=== PATIENT | female | born 1985 | race Caucasian/White ===

== ENCOUNTER 2023-09-02 12:50 | Outpatient (AMB) | payer OTHER, SELFPAY ==
[2023-09-02 12:59] VITALS: BP 136/90; PULSE 84; O2SAT 99; BMI 33.9
--- NOTE | 2023-09-02 12:59 | A.OFFPC_ITS ---
Vital Signs 09/02/23 12:59 Height 5 ft 6 in Weight 210 lb BMI 33.9 BP 136/90 H Blood Pressure Location Lt brachial Position Sitting Pulse 84 Pulse Source Pulse Oximeter Pulse Oximetry (%) 99 Oxygen Delivery Method Room Air Intake Visit Reasons: Annual PE Intake Note: Pt is here today for PE. Allergies No Known Allergies Allergy (Mild, Verified 09/02/23 13:00) NONE Medication List - Last Reconciled 09/02/23 by Patrick Zurita MD No Known Home Meds Tobacco use date assessed: 09/02/23 Dental Screening Dental Screen Date: 09/02/23 Did you have a dental visit in the last 12 months?: Yes Did you have a dental problem in the last 6 months where you did not have access to dental care?: No Was dental information given to patient?: Patient has dentist HPI Annual PE HPI Details Patient is a 38-year-old female came in today for physical exam Patient is in need of OBGYN appointment Migraine headaches: Patient has a from migraine headaches all the time, she has not taken any medications in the past Headache starts in the middle of the forehead and it is throbbing in nature. 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 Lab order placed to be done fasting We will book appointment in 3 weeks for follow-up [facility] Surgical History No pertinent past surgical history Family History Father Insulin dependent diabetes mellitus Mother Cervical cancer Brother No problems noted. Daughter No problems noted. Daughter No problems noted. Daughter No problems noted. Daughter No problems noted. Daughter No problems noted. Sister No problems noted. Sister No problems noted. Sister No problems noted. Sister No problems noted. Sister No problems noted. Sister No problems noted. Sister No problems noted. Sister No problems noted. Sister No problems noted. Social History Housing: House Alcohol intake: current Alcohol intake frequency: a few times a week Patient Tobacco Use Status: Current everyday Tobacco user Cigarettes Per Day: 6 e-Cigarette/Vaping Use: Never Used Current occupational status: employed Cognitive needs: No Hearing needs: No Vision needs: Yes Questionnaire PHQ-9 Over the last 2 weeks, how often have you been bothered by any of the following problems? [id number] - PHQ-9 Billing: Patient declined-do not bill Source: Developed by Drs. Devyn Dunaway, Judith Blank, Demetrius Marcial and colleagues, with an educational christian from [employer]. Thrive Questionnaire Date Thrive assessed: 09/02/23 I am a: Patient What is your living situation today?: I choose not to answer this question Within the past 12 months, did the food you bought not last and you didn't have the money to get more?: I choose not to answer this question Within the past 12 months, did you worry whether your food would run out before you got money to buy more?: I choose not to answer this question Do you have trouble paying for medicines?: I choose not to answer this question Do you have trouble getting transportation to medical appointments?: I choose not to answer this question Do you have trouble paying your heating and electricity bill?: I choose not to answer this question Do you have trouble taking care of your child, family member or friend?: I choose not to answer this question Do you have trouble with day-to-day activities such as bathing, preparing meals, shopping, managing finances, etc.?: I choose not to answer this question Are you currently unemployed and looking for a job?: I choose not to answer this question Are you interested in more education?: I choose not to answer this question Currently or been in a relationship where the following occur: I choose not to answer this question AUDIT C Alcohol Use Questionnaire (AUDIT-C) 1. How often do you have a drink containing alcohol?: Never 3. How often do you have six or more drinks on one occasion?: Never Total Score: 0 LUIS-7 AMB Questionnaire LUIS-7 Date LUIS - 7 assessed: 09/02/23 Source: Developed by Mikie Gaet B.W. Abhay, Demetrius Marcial and colleagues, with an educational christian from [employer]. LUIS-7 Assessment Billing LUIS-7 Assessment Tool: pt declined-do not bill Review of Systems Const Denies chills, Denies fever(s) and Denies headache(s) Eyes Denies blurry vision ENT Denies headache(s), Denies nasal discharge, Denies nasal obstruction, Denies odynophagia and Denies sinus pain Card Denies chest pain at rest and Denies chest pain with activity Resp Denies cough and Denies hemoptysis GI Denies diarrhea, Denies odynophagia, Denies vomiting and Denies hematemesis Reports as per HPI Musc Denies abnormal gait Skin/Breast Reports as per HPI Neuro Denies Neuro-related abnormal movements, Denies Abnormal speech present, Denies abnormal gait, Denies headache(s) and Denies Sensory deficit (Neuro) Psych Denies mood swings and Denies paranoia Endo Reports as per HPI Jr/Lymph Reports as per HPI Aller/Immun Reports as per HPI Physical exam (Primary Care) Vital Signs: Last Vital Signs Pulse 84 09/02/23 12:59 BP 136/90 H 09/02/23 12:59 Pulse Ox 99 09/02/23 12:59 Oxygen Delivery Method Room Air 09/02/23 12:59 BMI result Body Mass Index 33.9 Tobacco/Smoking Status: Tobacco use Status Tobacco use date assessed 09/02/23 09/02/23 13:04 Patient Tobacco Use Status Current everyday Tobacco 09/02/23 13:04 e-Cigarette/Vaping Use Never Used 09/02/23 13:04 Thrive Assessment: Date of Thrive Assessment Date Thrive assessed 09/02/23 09/02/23 15:08 Currently or been in a relationship where the following occur: I choose not to answer this question Const General: cooperative, comfortable and no acute distress Orientation/consciousness: patient oriented x3 HENMT Head: Yes normocephalic and Yes atraumatic Eyes General: appearance normal, both eyes and all related structures Pupils: Equal, round and reactive pupils present EOM: EOMs intact bilaterally Neck Neck: Yes supple and No lymphadenopathy Thyroid: Thyroid normal Lymphatic: no lymphadenopathy noted Chest Breast/axilla palpation: normal palpation of the breasts Resp Effort & Inspection: normal respiratory effort and able to speak in complete sentences Auscultation: clear to auscultation bilaterally Cardio Heart sounds: S1 normal heart sound present and S2 normal heart sound present GI Palpation (GI): Soft to palpation and nontender Auscultation: normal bowel sounds General: Yes no CVA tenderness Back/Spine/Pelvis Back: no CVA tenderness Skin General skin exam: elasticity normal and turgor normal Neuro General: patient oriented x3 and gait normal Cranial nerves: Yes Equal, round and reactive pupils present Speech: No Abnormal speech present Sensory Exam: No Sensory deficit (Neuro) Coordination: tandem gait normal and Romberg test negative Extrem General: Yes normal exam except as noted and No edema Assessment and Plan Assessment & Plan (1) Encounter for general adult medical examination with abnormal findings: Code(s): Z00.01 - Encounter for general adult medical examination with abnormal findings (2) Migraine headache with aura: Code(s): G43.109 - Migraine with aura, not intractable, without status migrainosus Qualifiers: Intractability: intractable Status migrainosus presence: without status migrainosus Qualified Code(s): G43.119 - Migraine with aura, intractable, without status migrainosus (3) Obesity due to excess calories: Code(s): E66.09 - Other obesity due to excess calories Qualifiers: Body mass index: BMI 33.0-33.9 Obesity classification: adult class 1 (BMI 30 - 34.9) Serious obesity comorbidity presence: without serious comorbidity Qualified Code(s): E66.09 - Other obesity due to excess calories; Z68.33 - Body mass index [BMI] 33.0-33.9, adult Plan Patient is a 38-year-old female came in today for physical exam Patient is in need of OBGYN appointment Migraine headaches: Patient has a from migraine headaches all the time, she has not taken any medications in the past Headache starts in the middle of the forehead and it is throbbing in nature. 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 Lab order placed to be done fasting We will book appointment in 3 weeks for follow-up Orders: Orders TSH reflex Free T4 Today E66.09 - Other obesity due to excess calories, G43.109 - Migraine with aura, not intractable, without status migrainosus, Z00.01 - Encounter for general adult medical examination with abnormal findings Vitamin D 25-OH (D2 and D3) Today E66.09 - Other obesity due to excess calories, G43.109 - Migraine with aura, not intractable, without status migrainosus, Z00.01 - Encounter for general adult medical examination with abnormal findings Complete Blood Count Auto Diff Today E66.09 - Other obesity due to excess calories, G43.109 - Migraine with aura, not intractable, without status migrainosus, Z00.01 - Encounter for general adult medical examination with abnormal findings Comprehensive [place]. Panel Fast Today E66.09 - Other obesity due to excess calories, G43.109 - Migraine with aura, not intractable, without status migrainosus, Z00.01 - Encounter for general adult medical examination with abnormal findings Lipid Panel Today E66.09 - Other obesity due to excess calories, G43.109 - Migraine with aura, not intractable, without status migrainosus, Z00.01 - Encounter for general adult medical examination with abnormal findings Referrals ENGINEERING TECHNOLOGY INSTRUCTOR Referral Z01.419 - Encounter for gynecological examination (general) (routine) without abnormal findings Medications: New amitriptyline 10 mg PO BEDTIME 30 tabs 0RF amitriptyline 10 mg PO BEDTIME 30 tabs 0RF sumatriptan succinate 50 mg PO ONCE 30 days PRN 10 tabs 0RF At the onset of migraine headache sumatriptan succinate 50 mg PO ONCE PRN 10 tabs 0RF At the onset of migraine headache 30 days Coding Level of Care Code Est Pt Prev Care 18-39y(87927) Diagnoses Encounter for general adult medical examination with abnormal findings Z00.01 Intractable migraine with aura without status migrainosus G43.119 Intractability: intractable Status migrainosus presence: without status migrainosus Class 1 obesity due to excess calories without serious comorbidity with body mas s index (BMI) of 33.0 to 33.9 in adult E66.09; Z68.33 Body mass index: BMI 33.0-33.9 Obesity classification: adult class 1 (BMI 30 - 34.9) Serious obesity comorbidity presence: without serious comorbidity
== END 2023-09-02 15:36 | disposition home or self-care (01) ==
PROVIDERS: Visit Provider Internal Medicine
DX: Z00.01 Encounter for general adult medical examination with abnormal findings (principal); G43.119 Migraine with aura, intractable, without status migrainosus; E66.09 Other obesity due to excess calories; Z68.33 Body mass index [BMI] 33.0-33.9, adult
CPT/HCPCS: 99213; 99395

== ENCOUNTER 2023-09-25 08:49 | Outpatient (AMB) | payer OTHER, SELFPAY ==
--- NOTE | 2023-09-25 09:07 | MHC.PC.OV ---
Intake Visit Reasons: 3 week follow up Allergies No Known Allergies Allergy (Mild, Verified 09/25/23 09:07) NONE Medication List - Last Reconciled 09/25/23 by Patrick Zurita MD amitriptyline 10 mg PO BEDTIME sumatriptan succinate 50 mg PO ONCE PRN 30 days Tobacco use date assessed: 09/25/23 Dental Screening Dental Screen Date: 09/25/23 Did you have a dental visit in the last 12 months?: Yes Did you have a dental problem in the last 6 months where you did not have access to dental care?: No Was dental information given to patient?: Patient has dentist HPI 3 week follow up HPI Details Patient is 38 year old female this is a telemedicine video conference to follow-up on her migraine headaches I started her on amitriptyline 25 mg at night patient says that she is feeling much better she is not getting headaches as much Sumatriptan has also helped her for acute headaches. Patient is tolerating medications I have sent refill for her Currently patient is suffering from chest cold, she says that her son had RSV 1 week ago Patient is coughing up thang phlegm and is feeling tight in her chest for the past 3 days. I have sent azithromycin with prednisone 20 mg once a day for 5 days, patient was instructed to rest and hydrate well. She may take [id number] cough medicine. [facility] Surgical History No pertinent past surgical history Family History Father Insulin dependent diabetes mellitus Mother Cervical cancer Brother No problems noted. Daughter No problems noted. Daughter No problems noted. Daughter No problems noted. Daughter No problems noted. Daughter No problems noted. Sister No problems noted. Sister No problems noted. Sister No problems noted. Sister No problems noted. Sister No problems noted. Sister No problems noted. Sister No problems noted. Sister No problems noted. Sister No problems noted. Social History Housing: House Alcohol intake: current Alcohol intake frequency: a few times a week Patient Tobacco Use Status: Current everyday Tobacco user Cigarettes Per Day: 6 e-Cigarette/Vaping Use: Never Used Current occupational status: employed Cognitive needs: No Hearing needs: No Vision needs: Yes Questionnaire Thrive Questionnaire Date Thrive assessed: 09/02/23 AUDIT C Alcohol Use Questionnaire (AUDIT-C) 1. How often do you have a drink containing alcohol?: Never 3. How often do you have six or more drinks on one occasion?: Never Total Score: 0 Score Reviewed/Action Taken: Yes LUIS-7 AMB Questionnaire LUIS-7 Date LUIS - 7 assessed: 09/02/23 Source: Developed by Drs. Devyn Dunaway, Judith Blank, Demetrius Marcial and colleagues, with an educational christian from [employer]. Review of Systems Const Reports body aches, Denies chills and Denies fever(s) ENT Denies epistaxis, Reports nasal congestion and Reports nasal discharge Card Denies chest pain Resp Reports chest congestion, Reports cough and Denies hemoptysis GI Denies diarrhea and Denies nausea Skin/Breast Denies rash Neuro Reports no additional complaints Psych Reports no additional complaints Endo Reports no additional complaints Physical exam (Primary Care) Tobacco/Smoking Status: Tobacco use Status Tobacco use date assessed 09/25/23 09/25/23 09:07 Patient Tobacco Use Status Current everyday Tobacco 09/25/23 09:07 e-Cigarette/Vaping Use Never Used 09/25/23 09:07 Thrive Assessment: Date of Thrive Assessment Date Thrive assessed 09/02/23 09/25/23 09:07 Telehealth Telehealth Location of provider rendering services: practice address Location of patient: address on file Patient Identification confirmed using: Name, : Yes Telehealth method: video Patient verbally consented to treatment: Yes Patient verbally consented to billing insurance company: Yes Patient informed of any privacy concerns related to visit: Yes Minutes spent on Phone/Video with Pt.: 13 Assessment and Plan Assessment & Plan (1) Migraine headache with aura: Code(s): G43.109 - Migraine with aura, not intractable, without status migrainosus Qualifiers: Status migrainosus presence: without status migrainosus Intractability: intractable Qualified Code(s): G43.119 - Migraine with aura, intractable, without status migrainosus (2) Cough productive of yellow sputum: Code(s): R05.8 - Other specified cough (3) Chest congestion: Code(s): R09.89 - Other specified symptoms and signs involving the circulatory and respiratory systems (4) Malaise and fatigue: Code(s): R53.81 - Other malaise; R53.83 - Other fatigue (5) Feeling sick: Code(s): R68.89 - Other general symptoms and signs (6) RSV exposure: Code(s): Z20.828 - Contact with and (suspected) exposure to other viral communicable diseases Plan Patient is 38 year old female this is a telemedicine video conference to follow-up on her migraine headaches I started her on amitriptyline 25 mg at night patient says that she is feeling much better she is not getting headaches as much Sumatriptan has also helped her for acute headaches. Patient is tolerating medications I have sent refill for her Currently patient is suffering from chest cold, she says that her son had RSV 1 week ago Patient is coughing up thang phlegm and is feeling tight in her chest for the past 3 days. I have sent azithromycin with prednisone 20 mg once a day for 5 days, patient was instructed to rest and hydrate well. She may take [id number] cough medicine. She has not done labs yet reminded patient to do them as soon as she started feeling better Medications: New prednisone 20 mg PO DAILY 5 days 5 tabs 0RF azithromycin Take 2 tablets today then 1 daily 250 mg PO ONCE 5 days 6 tabs 0RF J06.9 - Acute upper respiratory infection, unspecified Refilled amitriptyline 10 mg PO BEDTIME 90 tabs 0RF sumatriptan succinate 50 mg PO ONCE 30 days PRN 10 tabs 2RF At the onset of migraine headache Coding Level of Care Code Tele Est Pt Level 3 (11901) Diagnoses Intractable migraine with aura without status migrainosus G43.119 Status migrainosus presence: without status migrainosus Intractability: intractable Cough productive of yellow sputum R05.8 Chest congestion R09.89 Malaise and fatigue R53.81; R53.83 Feeling sick R68.89 RSV exposure Z20.828
== END 2023-09-25 11:20 | disposition home or self-care (01) ==
LOC: HO.HMGC 08:49
PROVIDERS: Visit Provider Internal Medicine
DX: G43.119 Migraine with aura, intractable, without status migrainosus (principal); R05.8 Other specified cough; R09.89 Other specified symptoms and signs involving the circulatory and respiratory systems; R53.81 Other malaise; R53.83 Other fatigue; R68.89 Other general symptoms and signs; Z20.828 Contact with and (suspected) exposure to other viral communicable diseases
CPT/HCPCS: 99213

== ENCOUNTER 2024-09-21 15:32 | Outpatient (AMB) | payer OTHER, SELFPAY ==
[2024-09-21 15:33] VITALS: BP 126/74; PULSE 96; O2SAT 98; BMI 38.5
--- NOTE | 2024-09-21 15:33 | A.OFFPC_ITS ---
Vital Signs 09/21/24 15:33 Height 5 ft 6 in Weight 238 lb 6 oz BMI 38.5 BP 126/74 Blood Pressure Location Rt brachial Position Sitting Pulse 96 Pulse Source Pulse Oximeter Pulse Oximetry (%) 98 Oxygen Delivery Method Room Air Intake Visit Reasons: Annual PE Allergies No Known Allergies Allergy (Mild, Verified 09/21/24 15:34) NONE Medication List - Last Reconciled 09/21/24 by Patrick Zurita MD No Known Home Meds Tobacco use date assessed: 09/21/24 Dental Screening Dental Screen Date: 09/21/24 Did you have a dental visit in the last 12 months?: Yes Did you have a dental problem in the last 6 months where you did not have access to dental care?: No Was dental information given to patient?: Patient has dentist HPI Annual PE HPI Details Patient is 39-year-old female came in today for physical exam She needs a T spot test for work Patient had a baby 6 months ago, OBGYN visit was at that time She has developed a skin tag right upper eyelid which is getting bigger She would like to see a support services specialist for that BMI is elevated patient is trying to lose weight She offer no other complaints today [facility] Surgical History No pertinent past surgical history Family History Father Insulin dependent diabetes mellitus Mother Cervical cancer Brother No problems noted. Daughter No problems noted. Daughter No problems noted. Daughter No problems noted. Daughter No problems noted. Daughter No problems noted. Sister No problems noted. Sister No problems noted. Sister No problems noted. Sister No problems noted. Sister No problems noted. Sister No problems noted. Sister No problems noted. Sister No problems noted. Sister No problems noted. Social History Housing: House Alcohol intake: current Alcohol intake frequency: a few times a week Patient Tobacco Use Status: Current everyday Tobacco user Cigarettes Per Day: 6 e-Cigarette/Vaping Use: Never Used Current occupational status: employed Cognitive needs: No Hearing needs: No Vision needs: Yes Questionnaire PHQ-9 Over the last 2 weeks, how often have you been bothered by any of the following problems? 1. Little interest or pleasure in doing things: not at all 2. Feeling down, depressed, or hopeless: not at all 3. Trouble falling or staying asleep, or sleeping too much: not at all 4. Feeling tired or having little energy: not at all 5. Poor appetite or overeating: not at all 6. Feeling bad about yourself - or that you are a failure or have let yourself or your family down: not at all 7. Trouble concentrating on things, such as reading the newspaper or watching television: not at all 8. Moving or speaking so slowly that other people could have noticed. Or the opposite - being so fidgety or restless that you have been moving around a lot more than usual: not at all 9. Thoughts that you would be better off or of hurting yourself in some way: not at all Total score: 0 Depression Screening Interpretation: Negative Depression Screening Done: Yes 21892 - PHQ-9 Billing: Yes Source: Developed by Drs. Devyn Dunaway, Judith Blank, Demetrius Marcial and colleagues, with an educational christian from [employer]. Thrive Questionnaire Date Thrive assessed: 09/21/24 I am a: Patient What is your living situation today?: I have a steady place to live Within the past 12 months, did the food you bought not last and you didn't have the money to get more?: Never true Within the past 12 months, did you worry whether your food would run out before you got money to buy more?: Never true Do you have trouble paying for medicines?: No Do you have trouble getting transportation to medical appointments?: No Do you have trouble paying your heating and electricity bill?: No Do you have trouble taking care of your child, family member or friend?: No Do you have trouble with day-to-day activities such as bathing, preparing meals, shopping, managing finances, etc.?: No Are you currently unemployed and looking for a job?: No Are you interested in more education?: No Please select the resources that you would like help with: None Currently or been in a relationship where the following occur: No concerns reported THRIVE Score: 0 AUDIT C Alcohol Use Questionnaire (AUDIT-C) 1. How often do you have a drink containing alcohol?: Never 3. How often do you have six or more drinks on one occasion?: Never Total Score: 0 Score Reviewed/Action Taken: Yes LUIS-7 AMB Questionnaire LUIS-7 Date LUIS - 7 assessed: 09/21/24 Feeling nervous, anxious, or on edge: 0 = Not at all Not being able to stop or control worryin = Not at all Worrying too much about different things: 0 = Not at all Trouble relaxin = Not at all Being so restless that it is hard to sit still: 0 = Not at all Becoming easily annoyed or irritable: 0 = Not at all Feeling afraid as if something awful might happen: 0 = Not at all Total LUIS-7 score (0-4 normal; 5-9 mild; 10-14 moderate; 15-21 severe): 0 Source: Developed by Drs. Devyn Dunaway, Judith Blank, Demetrius Marcial and colleagues, with an educational christian from [employer]. LUIS-7 Assessment Billing LUIS-7 Assessment Tool: LUIS-7 Assessment 78766 Review of Systems Const Denies chills, Denies fever(s) and Denies headache(s) Eyes Denies blurry vision ENT Denies headache(s), Denies nasal discharge, Denies nasal obstruction, Denies odynophagia and Denies sinus pain Card Denies chest pain at rest and Denies chest pain with activity Resp Denies cough and Denies hemoptysis GI Denies diarrhea, Denies odynophagia, Denies vomiting and Denies hematemesis Reports as per HPI Musc Denies abnormal gait Skin/Breast Reports as per HPI Neuro Denies Neuro-related abnormal movements, Denies Abnormal speech present, Denies abnormal gait, Denies headache(s) and Denies Sensory deficit (Neuro) Psych Denies mood swings and Denies paranoia Endo Reports as per HPI Jr/Lymph Reports as per HPI Aller/Immun Reports as per HPI Physical exam (Primary Care) Vital Signs: Last Vital Signs Pulse 96 09/21/24 15:33 BP 126/74 09/21/24 15:33 Pulse Ox 98 09/21/24 15:33 Oxygen Delivery Method Room Air 09/21/24 15:33 BMI result Body Mass Index 38.5 Tobacco/Smoking Status: Tobacco use Status Tobacco use date assessed 09/21/24 09/21/24 15:36 Patient Tobacco Use Status Current everyday Tobacco 11/12/24 15:36 e-Cigarette/Vaping Use Never Used 09/21/24 15:36 PHQ-9: PHQ-9 Score PHQ-9: Total score 0 09/21/24 15:59 Depression Screening Interpretation: Negative Thrive Assessment: Date of Thrive Assessment Date Thrive assessed 09/21/24 09/21/24 15:36 Currently or been in a relationship where the following occur: No concerns reported Const General: cooperative, comfortable and no acute distress Orientation/consciousness: patient oriented x3 HENMT Head: Yes normocephalic and Yes atraumatic Eyes General: appearance normal, both eyes and all related structures Pupils: Equal, round and reactive pupils present EOM: EOMs intact bilaterally Neck Neck: Yes supple and No lymphadenopathy Thyroid: Thyroid normal Lymphatic: no lymphadenopathy noted Resp Effort & Inspection: normal respiratory effort and able to speak in complete sentences Auscultation: clear to auscultation bilaterally Cardio Heart sounds: S1 normal heart sound present and S2 normal heart sound present GI Palpation (GI): Soft to palpation and nontender Auscultation: normal bowel sounds General: Yes no CVA tenderness Back/Spine/Pelvis Back: no CVA tenderness Skin General skin exam: elasticity normal and turgor normal Neuro General: patient oriented x3 and gait normal Cranial nerves: Yes Equal, round and reactive pupils present Speech: No Abnormal speech present Sensory Exam: No Sensory deficit (Neuro) Coordination: tandem gait normal and Romberg test negative Extrem General: Yes normal exam except as noted and No edema Office Procedures Flu Questionnaire Does the patient have a severe egg allergy?: No Does the patient have severe life threatening allergies?: No Does the patient have a fever or illness today?: No Has the patient ever had Guillain-Menomonie Syndrome?: No Has the patient ever had any past reaction to a flu shot?: No Immunizations Fluarix Triv [id number] (PF) 45 mcg (15 mcg x 3)/0.5 mL IM syringe Performing Provider: Patrick Zurita MD Performing Location: [facility] [place] [facility] Administered by: Esme Woodson CMA on 09/21/24 15:58 Dose Route Admin Location Dispensed Lot Number Expiration Date [facility] [employer] 0.5 mL IM Left Deltoid 0.5 mL [id number] 05/09/25 [id number] [employer] VIS Given Date VIS Provided VIS Publication Date 09/21/24 Single Vaccine 21 Eligibility Eligibility Date Funding Source Not [facility] Eligible 09/21/24 Private Coding Level of Care Code Est Pt Level 3 (47299) Est Pt Prev Care 18-39y(43833) Diagnoses Encounter for general adult medical examination with abnormal findings Z00.01 Class 1 obesity due to excess calories without serious comorbidity with body mass index (BMI) of 33.0 to 33.9 in adult E66.09; Z68.33 Body mass index: BMI 33.0-33.9 Obesity classification: adult class 1 (BMI 30 - 34.9) Serious obesity comorbidity presence: without serious comorbidity Skin tag L91.8 Screening-pulmonary TB Z11.1 Additional Codes LUIS-7 Assessment Billing - LUIS-7 Assessment Tool: LUIS-7 Assessment 65982 ([id number]) PHQ-9 - 71871 - PHQ-9 Billing: Yes ([id number]) Assessment & Plan Assessment & Plan (1) Encounter for general adult medical examination with abnormal findings: Code(s): Z00.01 - Encounter for general adult medical examination with abnormal findings Category: Medical (2) Obesity due to excess calories: Code(s): E66.09 - Other obesity due to excess calories Category: Medical Qualifiers: Body mass index: BMI 33.0-33.9 Obesity classification: adult class 1 (BMI 30 - 34.9) Serious obesity comorbidity presence: without serious comorbidity Qualified Code(s): E66.09 - Other obesity due to excess calories; Z68.33 - Body mass index [BMI] 33.0-33.9, adult (3) Skin tag: Code(s): L91.8 - Other hypertrophic disorders of the skin Category: Medical (4) Screening-pulmonary TB: Code(s): Z11.1 - Encounter for screening for respiratory tuberculosis Category: Medical Plan Patient is 39-year-old female came in today for physical exam She needs a T spot test for work Patient had a baby 6 months ago, OBGYN visit was at that time She has developed a skin tag right upper eyelid which is getting bigger She would like to see a support services specialist for that BMI is elevated patient is trying to lose weight She offer no other complaints today Orders: Orders Influenza [id number] Immunization Today Z23 - Encounter for immunization Complete Blood Count Auto Diff Today E66.09 - Other obesity due to excess calories, L91.8 - Other hypertrophic disorders of the skin, Z00.01 - Encounter for general adult medical examination with abnormal findings, Z68.33 - Body mass index [BMI] 33.0-33.9, adult Comprehensive Met. Panel Today E66.09 - Other obesity due to excess calories, L91.8 - Other hypertrophic disorders of the skin, Z00.01 - Encounter for general adult medical examination with abnormal findings, Z68.33 - Body mass index [BMI] 33.0-33.9, adult LDL Cholesterol Direct Today E66.09 - Other obesity due to excess calories, L91.8 - Other hypertrophic disorders of the skin, Z00.01 - Encounter for general adult medical examination with abnormal findings, Z68.33 - Body mass index [BMI] 33.0-33.9, adult T Spot TB Today Z11.1 - Encounter for screening for respiratory tuberculosis Referrals Dermatology Referral L91.8 - Other hypertrophic disorders of the skin
== END 2024-09-21 16:45 | disposition home or self-care (01) ==
PROVIDERS: PCP Internal Medicine; Visit Provider Internal Medicine
DX: Z00.00 Encounter for general adult medical examination without abnormal findings (principal); E66.09 Other obesity due to excess calories; Z68.33 Body mass index [BMI] 33.0-33.9, adult; L91.8 Other hypertrophic disorders of the skin; Z11.1 Encounter for screening for respiratory tuberculosis

== ENCOUNTER → 2024-09-21 15:32 | Outpatient (BNVA) | payer OTHER, SELFPAY | PROVIDERS: PCP Internal Medicine; Visit Provider Internal Medicine | DX: Z00.01 Encounter for general adult medical examination with abnormal findings (principal); Z23 Encounter for immunization; E66.09 Other obesity due to excess calories; Z68.33 Body mass index [BMI] 33.0-33.9, adult; L91.8 Other hypertrophic disorders of the skin | CPT/HCPCS: 90471; 90656; 96127; 99395 ==

== ENCOUNTER 2025-04-29 08:10 | Outpatient (AMB) | payer OTHER, SELFPAY ==
[2025-04-29 08:14] VITALS: BP 110/70; PULSE 89; RESP 15; TEMP 36.7; O2SAT 96; BMI 37.0
--- NOTE | 2025-04-29 08:14 | A.OFFPC_ITS ---
Vital Signs 04/29/25 08:14 Height 5 ft 6 in Weight 229 lb BMI 37.0 BP 110/70 Blood Pressure Location Rt brachial Position Sitting Respiration 15 Pulse 89 Pulse Source Pulse Oximeter Temp 98.0 F Temp Source Oral Pulse Oximetry (%) 96 Oxygen Delivery Method Room Air Intake Visit Reasons: Rash concern Allergies No Known Allergies Allergy (Mild, Verified 04/29/25 08:14) NONE Medication List - Last Reconciled 04/29/25 by Patrick Zurita MD No Known Home Meds Tobacco use date assessed: 04/29/25 Dental Screening Dental Screen Date: 04/29/25 Did you have a dental visit in the last 12 months?: Yes Did you have a dental problem in the last 6 months where you did not have access to dental care?: No Was dental information given to patient?: Patient has dentist HPI Rash concern HPI Details History - The patient is a 39-year-old female pr esenting with a rash. - The rash started approximately three w eeks ago, initially appearing as a small spot. - The rash is characterized by raised, i tchy hives that appear at night and resolve by early afternoon. 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 - The rash has spread from the initial s pot to the arm, with no changes in soap or detergent. - The patient has had her home checked f or bed bugs, with negative results. - The rash persists even when she is not at home, suggesting an internal trigger rather than an external contact allergen. - The patient denies taking any new medi cations or supplements.. Problem List - Urticaria (Hives) - Allergic Reaction Patient Instructions - Take prescribed prednisone and hydroxy zine as directed to manage symptoms. - Monitor for any swelling of lips, tong ue, or throat and seek emergency care if these occur. - Keep a diary of foods, supplements, an d exposures to identify potential allergens. - Follow up with an manager requirements for furthe r evaluation and management. Review of Systems - General: No fever no chills - Neurological: No headaches no dizziness - Ear nose throat: No sore throat no hearing difficulty no ear pain - Cardiovascular: No syncope, no chest pain, no palpitations - Gastrointestinal: No nausea vomiting or diarrhea - Endocrine: No polyuria polydipsia no heat intolerance - Genitourinary: No dysuria , no blood in urine Physical Exam General: No acute distress HEENT: No acute findings no swelling of lip tongue uvula midline Neck: Supple Respiratory system: Able to talk in full sentences, no audible wheeze Cardiovascular: S1-S2 regular in rate and rhythm Gastrointestinal: No pain Extremities: No new findings SHOE FOLDER: Alert awake oriented x3 motor sensory intact Skin: Hives present, very itchy, scattered all over body PFSH Surgical History No pertinent past surgical history Family History Father Insulin dependent diabetes mellitus Mother Cervical cancer Substance use disorder Mental health disorder Brother No problems noted. Daughter No problems noted. Daughter No problems noted. Daughter No problems noted. Daughter No problems noted. Daughter No problems noted. Sister Mental health disorder Sister No problems noted. Sister No problems noted. Sister No problems noted. Sister No problems noted. Sister No problems noted. Sister No problems noted. Sister No problems noted. Sister No problems noted. Father Mental health disorder Social History Housing: House Alcohol intake: current Alcohol intake frequency: a few times a week Patient Tobacco Use Status: Current everyday Tobacco user Cigarettes Per Day: 6 e-Cigarette/Vaping Use: Never Used Current occupational status: employed Cognitive needs: No Hearing needs: No Vision needs: Yes Questionnaire PHQ-9 Over the last 2 weeks, how often have you been bothered by any of the following problems? 1. Little interest or pleasure in doing things: not at all 2. Feeling down, depressed, or hopeless: not at all 3. Trouble falling or staying asleep, or sleeping too much: not at all 4. Feeling tired or having little energy: not at all 5. Poor appetite or overeating: not at all 6. Feeling bad about yourself - or that you are a failure or have let yourself or your family down: not at all 7. Trouble concentrating on things, such as reading the newspaper or watching television: not at all 8. Moving or speaking so slowly that other people could have noticed. Or the opposite - being so fidgety or restless that you have been moving around a lot more than usual: not at all 9. Thoughts that you would be better off or of hurting yourself in some way: not at all Total score: 0 Depression Screening Interpretation: Negative Depression Screening Done: Yes 73279 - PHQ-9 Billing: Yes Source: Developed by Drs. Devyn Dunaway, Judith Blank, Demetrius Marcial and colleagues, with an educational christian from [employer]. Thrive Questionnaire Date Thrive assessed: 04/29/25 I am a: Patient What is your living situation today?: I have a steady place to live Within the past 12 months, did the food you bought not last and you didn't have the money to get more?: Never true Within the past 12 months, did you worry whether your food would run out before you got money to buy more?: Never true Do you have trouble paying for medicines?: No Do you have trouble getting transportation to medical appointments?: No Do you have trouble paying your heating and electricity bill?: No Do you have trouble taking care of your child, family member or friend?: No Do you have trouble with day-to-day activities such as bathing, preparing meals, shopping, managing finances, etc.?: No Are you currently unemployed and looking for a job?: No Are you interested in more education?: No Please select the resources that you would like help with: None Currently or been in a relationship where the following occur: No concerns reported THRIVE Score: 0 AUDIT C Alcohol Use Questionnaire (AUDIT-C) 1. How often do you have a drink containing alcohol?: Never Total Score: 0 LUIS-7 AMB Questionnaire LUIS-7 Date LUIS - 7 assessed: 04/29/25 Feeling nervous, anxious, or on edge: 0 = Not at all Not being able to stop or control worryin = Not at all Worrying too much about different things: 0 = Not at all Trouble relaxin = Not at all Being so restless that it is hard to sit still: 0 = Not at all Becoming easily annoyed or irritable: 0 = Not at all Feeling afraid as if something awful might happen: 0 = Not at all Total LUIS-7 score (0-4 normal; 5-9 mild; 10-14 moderate; 15-21 severe): 0 Source: Developed by Drs. Devyn Dunaway, Judith Blank, Demetrius Marcial and colleagues, with an educational christian from [employer]. Physical exam (Primary Care) Vital Signs: Last Vital Signs Temp 98.0 F 04/29/25 08:14 Pulse 89 04/29/25 08:14 Resp 15 04/29/25 08:14 BP 110/70 04/29/25 08:14 Pulse Ox 96 04/29/25 08:14 Oxygen Delivery Method Room Air 04/29/25 08:14 BMI result Body Mass Index 37.0 Tobacco/Smoking Status: Tobacco use Status Tobacco use date assessed 04/29/25 04/29/25 08:19 Patient Tobacco Use Status Current everyday Tobacco 04/29/25 08:19 e-Cigarette/Vaping Use Never Used 04/29/25 08:19 PHQ-9: PHQ-9 Score PHQ-9: Total score 0 04/29/25 08:29 Depression Screening Interpretation: Negative Thrive Assessment: Date of Thrive Assessment Date Thrive assessed 04/29/25 04/29/25 08:19 Currently or been in a relationship where the following occur: No concerns reported Coding Level of Care Code Est Pt Level 3 (37463) Diagnoses Hives L50.9 Additional Codes PHQ-9 - 15151 - PHQ-9 Billing: Yes ([id number]) Assessment & Plan Assessment & Plan (1) Hives: Code(s): L50.9 - Urticaria, unspecified Category: Medical Plan History - The patient is a 39-year-old female presenting with a rash. - The rash started approximately three weeks ago, initially appearing as a small spot. - The rash is characterized by raised, itchy hives that appear at night and resolve by early afternoon. 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 - The rash has spread from the initial spot to the arm, with no changes in soap or detergent. - The patient has had her home checked for bed bugs, with negative results. - The rash persists even when she is not at home, suggesting an internal trigger rather than an external contact allergen. - The patient denies taking any new medications or supplements.. Problem List - Urticaria (Hives) - Allergic Reaction Patient Instructions - Take prescribed prednisone and hydroxyzine as directed to manage symptoms. - Monitor for any swelling of lips, tongue, or throat and seek emergency care if these occur. - Keep a diary of foods, supplements, and exposures to identify potential allergens. - Follow up with an manager requirements for further evaluation and management. Orders: Referrals Allergy & Immunology Referral L50.9 - Urticaria, unspecified Medications: New hydroxyzine HCl 25 mg PO TID PRN 30 tabs 0RF itching methylprednisolone (Medrol (Yair)) PO PER PKG DIR 21 ea 0RF 6 days
--- OUTSIDE RECORDS SUMMARY | 2025-04-29 08:14 | XMS_ITS | Clinical Summary ---
Author Organization [facility] Address [address] [place] [address] Care Team Providers Care Mine Engineering Supervisor Name Role Phone Patrick Zurita MD Primary Care Provider [phone] Medical History Medical History Date Comments Major depression, chronic 2006 DX:Jace or depression, chronic; COMMENT: depression H/O intestinal infection 2016 DX:H/O intestinal infection; COMMENT: chrons disease Family History Medical History Relation Name Comments Breast cancer Neg Hx Colon cancer Neg Hx Ovarian cancer Neg Hx Prostate cancer Neg Hx Social History Tobacco Use Types Packs/Day Years Used Date Smoking Tobacco: Light Smoker Smokeless Tobacco: Never Comments Unknown Sex and Gender Information Value Date Recorded Sex Assigned at Not on file Legal Sex Female 4:34 PM EST Gender Identity Not on file Sexual Orientation Not on file Obstetrics History Last Filed Vital Signs Vital Sign Reading Time Taken Comments Blood Pressure 130/70 03/01/2024 2:27 PM EDT Sit ting R Arm Pulse 132 03/01/2024 2:27 PM EDT Temperature - - Respiratory Rate - - Oxygen Saturation - - Inhaled Oxygen Concentration - - Weight - - Height - - Body Mass Index - - Plan of Treatment Health Maintenance Due Date Last Done Comments Hepatitis B Vaccines (1 of 3 - 19+ 3-dose series) 2006 Pneumococcal Vaccine: Pediat rics (0 to 5 Years) and At-Risk Patients (6 to 64 Years) (1 of 2 - PCV) 2006 Cervical Cancer Screening: P ap Smear 2008 Depression Screening 10/09/2022 HIV Screening 10/09/2022 Hepatitis C Screening 10/09/2022 Social Influencers of Health Screening 10/09/2022 COVID-19 Vaccine (1 - 2023-2 5 season) 2024 Influenza Vaccine (Season Ended) 2025 DTaP,Tdap,and Td Vaccines (2 - Td or Tdap) 12/31/2027 12/31/2017 HIB Vaccines Aged Out No longer eligi ble based on patient's age to complete this topic HPV Vaccines Aged Out No longer eligi ble based on patient's age to complete this topic Hepatitis A Vaccines Aged Out No long er eligible based on patient's age to complete this topic IPV Vaccines Aged Out No longer eligi ble based on patient's age to complete this topic MMR Vaccines Aged Out No longer eligi ble based on patient's age to complete this topic Meningococcal ACWY Vaccine Aged Out N o longer eligible based on patient's age to complete this topic Meningococcal B Vaccine Aged Out No l onger eligible based on patient's age to complete this topic RSV Immunization Patients Un gabriela 20 months Aged Out No longer eligible b ased on patient's age to complete this topic Varicella Vaccines Aged Out No longer eligible based on patient's age to complete this topic Care Teams Mine Engineering Supervisor Relationship Specialty Start Date End Date Patrick Zurita MD [phone] [place] [address] PCP - General Internal Medicine 10/20/17
== END 2025-04-29 09:07 | disposition home or self-care (01) ==
LOC: HO.HMCC 08:11
PROVIDERS: PCP Internal Medicine; Visit Provider Internal Medicine
DX: L50.9 Urticaria, unspecified (principal)

== ENCOUNTER → 2025-04-29 08:10 | Outpatient (BNVA) | payer OTHER, SELFPAY | PROVIDERS: PCP Internal Medicine; Visit Provider Internal Medicine | DX: L50.9 Urticaria, unspecified (principal); Z13.31 Encounter for screening for depression; Z13.30 Encounter for screening examination for mental health and behavioral disorders, unspecified | CPT/HCPCS: 96127; 99212 ==